=== PATIENT | male | born 1955 | race Asian ===

== ENCOUNTER 2020-07-16 08:59 | Outpatient (CLI) | payer BC, OTHER | END 2020-07-16 21:41 | disposition home or self-care (01) | LOC: INF 08:59 | PROVIDERS: ATTEND Internal Medicine Endocrinology, Diabetes & Metabolism | DX: Z23 Encounter for immunization (principal) | CPT/HCPCS: 96372 ==

== ENCOUNTER 2020-08-13 08:11 | Outpatient (CLI) | payer BC, OTHER | END 2020-08-13 23:08 | disposition home or self-care (01) | LOC: INF 08:11 | PROVIDERS: ATTEND Internal Medicine Endocrinology, Diabetes & Metabolism | DX: Z23 Encounter for immunization (principal) | CPT/HCPCS: 96372 ==